=== PATIENT | female | born 1980 | race Two or more races ===

== ENCOUNTER 2022-03-07 17:37 | Inpatient (IN) | payer OTHER, MEDICAID ==
[~2022-03-07] VITALS: Ht 162.6 cm; Wt 68.0 kg
[~2022-03-07 17:37] MED LIST: DICY10CA88 PO
[2022-03-07 18:07] LABS: BASOPHILS # (AUTO) 0.1 X10'3 (0-0.2); BASOPHILS % (AUTO) 0.7 % (0-1); EOSINOPHILS # (AUTO) 0.1 X10'3 (0-0.9); EOSINOPHILS % (AUTO) 0.9 % (0-6); HEMATOCRIT 40.2 % (35.0-45.0); HEMOGLOBIN 13.4 g/dl (12.0-16.0); LYMPHOCYTES # (AUTO) 2.3 X10'3 (1.1-4.8); MEAN CORPUSCULAR HEMOGLOBIN 28.9 PG (27.0-31.0); MEAN CORPUSCULAR HGB CONC 33.4 g/dL (33.0-36.5); MEAN CORPUSCULAR VOLUME 86.5 FL (78-98); MEAN PLATELET VOLUME 9.1 FL (7.4-10.4); MONOCYTES # (AUTO) 0.6 X10'3 (0-0.9); MONOCYTES % (AUTO) 7.6 % (2-12); NEUTROPHILS # (AUTO) 4.8 X10'3 (1.8-7.7); NEUTROPHILS % (AUTO) 60.8 % (42-75); PLATELET COUNT 284 X10'3 (140-440); RED BLOOD COUNT 4.65 X10'6 (4.20-5.60); WHITE BLOOD COUNT 7.8 X10'3 (4.5-11.0)
[2022-03-07 18:26] LABS: ALANINE AMINOTRANSFERASE 23 U/L (12-78); ALBUMIN 4.1 G/DL (3.4-5.0); ALBUMIN/GLOBULIN RATIO 1.1 (1.1-1.5); ALKALINE PHOSPHATASE 71 IU/L (46-116); ANION GAP 9 (8-16); ASPARTATE AMINO TRANSFERASE 22 U/L (10-37); BILIRUBIN,TOTAL 0.3 MG/DL (0.1-1.0); BLOOD UREA NITROGEN 11 MG/DL (7-18); BUN/CREATININE RATIO 16.4 (6.6-38.0); CALCIUM 8.7 MG/DL (8.5-10.1); CHLORIDE 103 MMOL/L (99-107); CREATININE 0.67 MG/DL (0.40-0.90); GLUCOSE 102 MG/DL (70-104); MAGNESIUM 2.1 MG/DL (1.5-2.4); POTASSIUM 3.5 MMOL/L (3.5-5.1); SODIUM 139 MMOL/L (135-145); TOTAL CARBON DIOXIDE 27.3 MMOL/L (24-32); eGFR > 90 ML/MIN
[2022-03-07 19:16] LABS: CLARITY,URINE SLIGHTLY CLOUDY (Clear); COLOR,URINE STRAW (Yellow); GLUCOSE, URINE NEGATIVE (Neg); KETONES,URINE NEGATIVE (Neg); LEUKOCYTE ESTERASE ,URINE NEGATIVE (Neg); NITRITES, URINE NEGATIVE (Neg); OCCULT BLOOD,URINE NEGATIVE (Neg); PH,URINE 5.5 (4.8-8.0); PROTEIN,URINE NEGATIVE (Neg); URINE HCG NEGATIVE (NEG); UROBILINOGEN,URINE 0.2 E.U/dL (0.2-1.0)
[2022-03-07 19:20] LABS: ETHANOL < 0.010 GM/DL (0.0-0.010)
[2022-03-07 19:28] LABS: URINE AMPHETAMINE SCREEN NEGATIVE (Neg); URINE BARBITUATE SCREEN NEGATIVE (Neg); URINE BENZODIAZEPINES SCREEN NEGATIVE (Neg); URINE CANNABINOID SCREEN NEGATIVE (Neg); URINE COCAINE SCREEN NEGATIVE (Neg); URINE METHADONE SCREEN NEGATIVE (Neg); URINE OPIATE SCREEN NEGATIVE (Neg); URINE PHENCYCLIDINE SCREEN NEGATIVE (Neg)
[2022-03-07 19:29] LABS: UA COLLECTION TYPE CLN CATCH MIDSTREAM
[2022-03-07 19:31] LABS: BACTERIA,URINE 1+ /HPF (Neg); MUCUS STRANDS FEW /LPF (Neg); RBC,URINE 0-2 /HPF (0-2); SQUAMOUS EPITHELIAL CELL,UR MODERATE /LPF (FEW); WBC,URINE 0-4 /HPF (0-4)
--- NOTE | 2022-03-07 19:38 | NUR ---
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
[2022-03-07] MEDS ORDERED: aspirin 81mg tab.chew PO ONE (20:05)
[2022-03-07] MEDS ORDERED: nitroGLYCERIN 0.4mg SUBLingual tab SL PRN ×2 (20:05→20:15)
[2022-03-07] MEDS ORDERED: nitroGLYCERIN 0.2mg/hour patch TD ONE (20:05)
[2022-03-07] MEDS ORDERED: regadenoson 0.4mg/5ml syringe IV PRN (20:15)
[2022-03-07] MEDS: normal saline 1000ml 1,000 ML IV SCH (20:15)
[2022-03-07] MEDS ORDERED: magnesium Cl slow-release 64mg tablet PO PRN (20:15)
[2022-03-07] MEDS ORDERED: potassium Cl 40MEQ/1/2NS 520ml 520 ML IV PRN (20:15)
[2022-03-07] MEDS ORDERED: potassium Cl 20 mEq SR tablet PO PRN ×2 (20:15)
[2022-03-07] MEDS ORDERED: aminophylline 250mg/10ml inj. IV PRN (20:15)
[2022-03-07] MEDS ORDERED: magnesium 4gm in 100ml NS 100 ML IV PRN (20:15)
[2022-03-07] MEDS ORDERED: metoprolol tartrate 1mg/ml inj IV PRN (20:15)
[2022-03-07] MEDS ORDERED: ondansetron/PF 4mg/2ml inj IV PRN (20:15)
[2022-03-07] MEDS ORDERED: NO HOME MEDS (20:31)
[2022-03-07] MEDS ORDERED: cyclobenzaprine 10mg tablet PO ONE (20:50)
[2022-03-07] MEDS ORDERED: temazepam 15mg capsule PO PRN (21:00)
[2022-03-07 21:25] LABS: D-DIMER 1.42 MG/L FEU (0-0.50)
--- NOTE | 2022-03-07 21:48 | NUR ---
Patient states she had relief from nitro patch, no longer having chest pressure.
[2022-03-08] VITALS (8 sets, daily range): BP systolic 102–130; BP diastolic 55–74
[2022-03-08 04:04] LABS: BASOPHILS # (AUTO) 0.1 X10'3 (0-0.2); BASOPHILS % (AUTO) 0.7 % (0-1); EOSINOPHILS # (AUTO) 0.1 X10'3 (0-0.9); EOSINOPHILS % (AUTO) 1.2 % (0-6); HEMATOCRIT 36.5 % (35.0-45.0); HEMOGLOBIN 12.4 g/dl (12.0-16.0); LYMPHOCYTES # (AUTO) 2.8 X10'3 (1.1-4.8); LYMPHOCYTES % (AUTO) 30.8 % (21-51); MEAN CORPUSCULAR HEMOGLOBIN 29.1 PG (27.0-31.0); MEAN CORPUSCULAR HGB CONC 33.9 g/dL (33.0-36.5); MEAN CORPUSCULAR VOLUME 85.7 FL (78-98); MEAN PLATELET VOLUME 9.1 FL (7.4-10.4); MONOCYTES # (AUTO) 0.6 X10'3 (0-0.9); NEUTROPHILS # (AUTO) 5.5 X10'3 (1.8-7.7); NEUTROPHILS % (AUTO) 60.3 % (42-75); PLATELET COUNT 247 X10'3 (140-440); RED BLOOD COUNT 4.26 X10'6 (4.20-5.60); RED CELL DISTRIBUTION WIDTH 14.1 % (11.5-14.5)
[2022-03-08 04:31] LABS: ALANINE AMINOTRANSFERASE 24 U/L (12-78); ALBUMIN 3.6 G/DL (3.4-5.0); ALBUMIN/GLOBULIN RATIO 1.1 (1.1-1.5); ALKALINE PHOSPHATASE 58 IU/L (46-116); ANION GAP 8 (8-16); ASPARTATE AMINO TRANSFERASE 14 U/L (10-37); BILIRUBIN,TOTAL 0.6 MG/DL (0.1-1.0); BLOOD UREA NITROGEN 10 MG/DL (7-18); BUN/CREATININE RATIO 14.9 (6.6-38.0); CALCIUM 8.4 MG/DL (8.5-10.1); CHLORIDE 105 MMOL/L (99-107); CREATININE 0.67 MG/DL (0.40-0.90); GLUCOSE 90 MG/DL (70-104); POTASSIUM 3.2 MMOL/L (3.5-5.1); SODIUM 139 MMOL/L (135-145); TOTAL CARBON DIOXIDE 25.7 MMOL/L (24-32); eGFR > 90 ML/MIN
--- NOTE | 2022-03-08 07:36 | NUR ---
Patient to stress test @7517.
[2022-03-08] MEDS ORDERED: heparin, porcine 5000 units/ml vial SQ SCH (08:00)
[2022-03-08] MEDS ORDERED: pantoprazole 40mg Tablet.DR PO SCH (08:00)
--- NOTE | 2022-03-08 09:17 | NUR ---
Pt back from stress test @5423.
[2022-03-08] MEDS: normal saline 1000ml 1,000 ML IV SCH (09:35)
--- NOTE | 2022-03-08 11:50 | NUR ---
Page sent to @ [phone] -Pt [id number], Melanie House, has headache 4/10 pain, pt requdesting APAP. Please advise. Claritza Faust, JEM II @[phone].
--- NOTE | 2022-03-08 12:01 | NUR ---
AUTHORIZATION REPRESENTATIVE II documentation: I have reviewed and agree with all interventions, assessments performed and documented by Claritza, AUTHORIZATION REPRESENTATIVE II.
--- NOTE | 2022-03-08 12:27 | NUR ---
Paged @ [phone] -Pt [id number], Melanie House, second page, pt requesting APAP for headache, pain 08/16, please advise. Thank you, Claritza Faust LVN II @[id number].
[2022-03-08] MEDS ORDERED: acetaminophen 325mg tablet PO PRN (12:30)
[2022-03-08] MEDS ORDERED: potassium Cl 20 mEq SR tablet PO PRN ×2 (12:50)
[2022-03-08] MEDS ORDERED: potassium Cl 40MEQ/1/2NS 520ml 520 ML IV PRN (12:50)
[2022-03-08] MEDS ORDERED: iohexol 350MG/ML 100ml bottle IV ONE (15:08)
[2022-03-08] MEDS ORDERED: potassium Cl 20 mEq SR tablet PO STA (16:55)
--- NOTE | 2022-03-08 18:22 | NUR ---
Patient in room PCU 3023. I have received report from Claritza PARISH and had the opportunity to ask questions and assume patient care.
--- NOTE | 2022-03-08 18:29 | NUR ---
Patient left floor to with professor of nursing and trasported to private vehicle. Claritza JEM went over discharge paperwork and signed paperwork prior to discharge and was educated on the specifics of her plan. PIV's and telebox removed prior to discharge.
[2022-03-08] MEDS ORDERED: K and/or MAG REPLACEMENT MC SCH (20:00)
== END 2022-03-08 18:25 | disposition home or self-care (01) | DRG 392 ==
LOC: ER 17:38 → ED HOLD 20:19 → PCU 3S 03-08 10:30
PROVIDERS: ADMIT Internal Medicine; ATTEND Family Medicine
PROC: 4A02XM4 Measurement of Cardiac Total Activity, External Approach (ICD-10-PCS; principal; 2022-03-07)
PROC: 3E033HZ Introduction of Radioactive Substance into Peripheral Vein, Percutaneous Approach (ICD-10-PCS; 2022-03-07)
PROC: B32T1ZZ Computerized Tomography (CT Scan) of Left Pulmonary Artery using Low Osmolar Contrast (ICD-10-PCS; 2022-03-08)
PROC: B3201ZZ Computerized Tomography (CT Scan) of Thoracic Aorta using Low Osmolar Contrast (ICD-10-PCS; 2022-03-08)
PROC: B32S1ZZ Computerized Tomography (CT Scan) of Right Pulmonary Artery using Low Osmolar Contrast (ICD-10-PCS; 2022-03-08)
DX: K21.9 Gastro-esophageal reflux disease without esophagitis (principal); R07.89 Other chest pain; E87.6 Hypokalemia; F41.9 Anxiety disorder, unspecified; Z88.6 Allergy status to analgesic agent
CPT/HCPCS: 36415; 71045; 71275; 78452; 80053; 80305; 80320; 81001; 81025; 83735; 83880; 84132; 84443; 84484; 85025; 85379; 93005; 93017; 93306; 99285; A9500; G0378; J1644; J2785; J3490; Q9967